=== PATIENT | male | born 1960 | race Caucasian/White ===

== ENCOUNTER 2024-09-16 09:57 | Outpatient (CLI) | payer MEDICARE, SELFPAY ==
[2024-09-16 12:57] LABS: Anion Gap 6.2 mmol/L (3-11); BUN 20 mg/dL (7-18); CO2 30.8 mmol/L (21.0-32.0); CREATININE 0.9 mg/dL (0.70-1.30); Calcium 9.5 mg/dL (8.5-10.1); Calculated LDL 66 mg/dL (<100); Chloride 105 mmol/L (98-107); Cholesterol 157 mg/dL (<200); Estimated GFR 94.19 (mL/min/1.73m2); Glucose 94 mg/dL (74-106); HDL Cholesterol 56 mg/dL (40-60); Sodium 142 mmol/L (136-145); Triglyceride 177 mg/dL (<150)
[2024-09-16 22:07] LABS: PSA, Screening 1.3 ng/mL (<=4.5)
== END 2024-09-16 09:58 | disposition home or self-care (01) ==
PROVIDERS: PCP Nurse Practitioner Family; Referring Provider Nurse Practitioner Family; Visit Provider Nurse Practitioner Family
DX: Z12.5 Encounter for screening for malignant neoplasm of prostate (principal); Z13.6 Encounter for screening for cardiovascular disorders; Z13.1 Encounter for screening for diabetes mellitus; R22.9 Localized swelling, mass and lump, unspecified; F17.200 Nicotine dependence, unspecified, uncomplicated; S61.219A Laceration without foreign body of unspecified finger without damage to nail, initial encounter
CPT/HCPCS: 36415; 80048; 80061; 84153